=== PATIENT | female | born 1965 ===

== ENCOUNTER 2017-03-12 18:32 | Emergency (ER) | payer OTHER ==
[2017-03-12] MEDS ORDERED: Sodium Chloride 0.9% 1,000 ML IV ONE (19:32)
--- NOTE | 2017-03-12 19:32 | C.PDOC ---
History Of Present Illness 52 y/o female presents to the ED with complains of right flank pain, fever and chills for the past 1-2 days. Pt is currently being treated for UTI on levaquin. Denies abdominal pain, vomiting, diarrhea, dysuria or any other complaints. Time Seen by Provider: 03/12/17 19:25 Chief Complaint (Nursing): Female Genitourinary History Per: Patient History/Exam Limitations: no limitations Onset/Duration Of Symptoms: Days Current Symptoms Are (Timing): Still Present Severity: Moderate Pain Scale Rating Of: 4 Quality Of Discomfort: "Pain" Associated Symptoms: Fever, Chills, Back Pain (right flank pain). denies: Vomiting, Diarrhea, Urinary Symptoms Alleviating Factors: None Recent travel outside of the [place]: No Additional History Per: Patient Abnormal Vaginal Bleeding: No Past Medical History Reviewed: Historical Data, Nursing Documentation, Vital Signs Vital Signs: Last Vital Signs Temp 98.2 F 03/12/17 20:30 Pulse 73 03/12/17 20:30 Resp 16 03/12/17 20:30 BP 116/73 03/12/17 20:30 Pulse Ox 100 03/12/17 20:30 Family History: States: Unknown Family Hx Review Of Systems Constitutional: Positive for: Fever, Chills Cardiovascular: Negative for: Chest Pain Respiratory: Negative for: Shortness of Breath Gastrointestinal: Negative for: Vomiting, Abdominal Pain, Diarrhea Genitourinary: Negative for: Dysuria Musculoskeletal: Positive for: Back Pain (right flank pain) Neurological: Negative for: Headache Physical Exam - Physical Exam Appears: Non-toxic, No Acute Distress Skin: Warm, Dry, No Rash Head: Atraumatic, Normacephalic Neck: Supple Chest: Symmetrical, No Tenderness Cardiovascular: Rhythm Regular, No Murmur Respiratory: No Accessory Muscle Use, No Rales, No Rhonchi, No Wheezing Gastrointestinal/Abdominal: Bowel Sounds, Soft, No Tenderness Back: No CVA Tenderness Extremity: Bilateral: Atraumatic Neurological/Psych: Oriented x3, Normal Speech ED Course And Treatment - Laboratory Results Result Diagrams: 03/12/17 20:18 03/12/17 20:18 O2 Sat by Pulse Oximetry: 96 (room air) Pulse Ox Interpretation: Normal Reevaluation Time: 22:31 Reassessment Condition: Improved Disposition Counseled Patient/Family Regarding: Studies Performed, Diagnosis, Need For Followup - Disposition Referrals: Fritz Amezcua MD [Family Provider] - Disposition: HOME/ ROUTINE Disposition Time: 19:32 Condition: FAIR Instructions: Abdominal Pain (ED), Flank Pain (ED) - Clinical Impression Clinical Impression: Abdominal pain - Scribe Statement The provider has reviewed the documentation as recorded by the Scribe Yonathan Abarca Provider Attestation: All medical record entries made by the Elidaibe were at my direction and personally dictated by me. I have reviewed the chart and agree that the record accurately reflects my personal performance of the history, physical exam, medical decision making, and the department course for this patient. I have also personally directed, reviewed, and agree with the discharge instructions and disposition.
[2017-03-12 20:23] LABS: BASO % 0.3 % (0.0-2.0); EOS # 0.1 K/uL (0.0-0.7); EOS % 1.3 % (0.0-4.0); HEMATOCRIT 38.3 % (34.0-47.0); LYMPH # 2.4 K/uL (1.0-4.3); MEAN CELL VOLUME 85.1 fL (81.0-99.0); MEAN CORPUSCULAR HEMOGLOBIN 27.8 pg (27.0-31.0); MEAN CORPUSCULAR HGB CONC 32.6 g/dL (33.0-37.0); MEAN PLATELET VOLUME 8.7 fL (7.2-11.7); MONO # 0.5 K/uL (0.0-0.8); MONO % 5.5 % (0.0-10.0); RED CELL DISTRIBUTION WIDTH 14.6 % (11.5-14.5); WHITE BLOOD COUNT 8.7 K/uL (4.8-10.8)
[2017-03-12 20:29] LABS: VENOUS BLOOD GAS BASE EXCESS 0.8 mmol/L (0.0-2.0); VENOUS BLOOD GAS PCO2 56 mmHg (40-60); VENOUS BLOOD PH 7.31 (7.32-7.43)
[2017-03-12 20:30] LABS: INR 1.2
[2017-03-12 20:33] LABS: CHLORIDE 102 mmol/L (98-107); SODIUM 139 mmol/L (132-148)
[2017-03-12 20:35] LABS: GFR AFRICAN-AMERICAN > 60; URINE BILIRUBIN NEGATIVE (NEGATIVE); URINE BLOOD NEGATIVE (NEGATIVE); URINE COLOR Colorless (YELLOW); URINE GLUCOSE (UA) NORMAL (Normal); URINE KETONE NEGATIVE (NEGATIVE); URINE LEUKOCYTE ESTERASE TRACE Leu/uL (Negative); URINE PROTEIN NEGATIVE (NEGATIVE); URINE UROBILINOGEN NORMAL mg/dL (0.2-1.0); WBC URINE 1 /hpf (0-5)
[2017-03-12 20:36] LABS: ALB/GLOB RATIO 1.3 (1.0-2.1); ALKALINE PHOSPHATASE 85 U/L (38-126); ALT/SGPT 26 U/L (9-52); AST/SGOT 22 U/L (14-36); BILIRUBIN,TOTAL 0.7 mg/dL (0.2-1.3); BLOOD UREA NITROGEN 10 mg/dL (7-17); CALCIUM 9.1 mg/dl (8.6-10.4); CARBON DIOXIDE 26 mmol/L (22-30); GLUCOSE,RANDOM 105 mg/dL (65-105); TOTAL PROTEIN 7.8 g/dL (6.3-8.3)
[2017-03-12 20:45] VITALS: RESP 16
[2017-03-12] MEDS ORDERED: Iohexol 350mg/ml 100 ML ONE (21:28)
[2017-03-12 22:42] VITALS: BP 106/66; PULSE 94; TEMP 98.5; O2SAT 99
--- NOTE | 2017-03-13 08:35 | CT ---
PROCEDURE: CT Abdomen and Pelvis with intravenous contrast HISTORY: Right flank pain. Urinary tract infection. COMPARISON: CT of the abdomen and pelvis dated 06/05/2015. TECHNIQUE: Multiple contiguous axial images were performed through the abdomen and pelvis with intravenous contrast.. Subsequently, sagittal and coronal reformatted images were obtained. Radiation dose: Total exam DLP = 928 mGy-cm. This CT exam was performed using one or more of the following dose reduction techniques: Automated exposure control, adjustment of the mA and/or kV according to patient size, and/or use of iterative reconstruction technique. FINDINGS: LOWER THORAX: Mild scarring of the lingula and right middle lobe at its inferior margin. 9 millimeter nodular density/focal area of nodular consolidation seen within the medial aspect of the right middle lobe. Mild atelectasis within the lingula. LIVER: Fatty infiltration of the liver. GALLBLADDER AND BILE DUCTS: Unremarkable. PANCREAS: Unremarkable. No gross lesion or ductal dilatation. SPLEEN: Unremarkable. ADRENALS: Unremarkable. No mass. KIDNEYS AND URETERS: Unremarkable. No hydronephrosis. No solid mass. VASCULATURE: Unremarkable. No aortic aneurysm. BOWEL: Unremarkable. No obstruction. No gross mural thickening. APPENDIX: Unremarkable. Normal appendix. PERITONEUM: Unremarkable. No free fluid. No free air. LYMPH NODES: Unremarkable. No enlarged lymph nodes. BLADDER: Unremarkable. REPRODUCTIVE: Postsurgical changes. Prior hysterectomy. BONES: Moderate degenerative narrowing and sclerosis within the spine most pronounced at the L3-S1 level. Mild grade 1 degenerative anterolisthesis of L4 on L5. OTHER FINDINGS: Morbid obesity present. IMPRESSION: Negative acute. Postsurgical changes of the pelvis. These findings were preliminarily reported at 10:22 p.m. on 03/12/[address] Anjel Paris from [facility].
== END 2017-03-12 22:40 | disposition home or self-care (01) ==
LOC: C.ER 18:32
DX: R10.30 Lower abdominal pain, unspecified (principal)
CPT/HCPCS: 74177; 80053; 81001; 82803; 84703; 85025; 85610; 85730; 87040; 87086; 99284; Q9967